=== PATIENT | female | born 1985 | race Caucasian/White ===

== ENCOUNTER → 2020-03-27 09:54 | Outpatient (BNVA) | payer OTHER, SELFPAY | PROVIDERS: Visit Provider Internal Medicine | DX: F11.99 Opioid use, unspecified with unspecified opioid-induced disorder (principal); M54.9 Dorsalgia, unspecified | CPT/HCPCS: 80305 ==

== ENCOUNTER → 2020-05-22 10:00 | Outpatient (BNVA) | payer OTHER, SELFPAY | PROVIDERS: Visit Provider Internal Medicine | DX: F11.99 Opioid use, unspecified with unspecified opioid-induced disorder (principal) ==

== ENCOUNTER → 2020-07-17 10:07 | Outpatient (BNVA) | payer OTHER, SELFPAY | PROVIDERS: Visit Provider Internal Medicine | DX: F11.99 Opioid use, unspecified with unspecified opioid-induced disorder (principal) ==

== ENCOUNTER → 2020-09-11 10:05 | Outpatient (BNVA) | payer OTHER, SELFPAY | PROVIDERS: Visit Provider Internal Medicine | DX: F11.99 Opioid use, unspecified with unspecified opioid-induced disorder (principal) ==

== ENCOUNTER → 2020-11-06 10:06 | Outpatient (BNVA) | payer OTHER, SELFPAY | PROVIDERS: Visit Provider Internal Medicine | DX: F11.99 Opioid use, unspecified with unspecified opioid-induced disorder (principal) | CPT/HCPCS: 80305 ==

== ENCOUNTER → 2021-01-01 09:54 | Outpatient (BNVA) | payer OTHER, SELFPAY | PROVIDERS: Visit Provider Internal Medicine | DX: F11.99 Opioid use, unspecified with unspecified opioid-induced disorder (principal); Z51.81 Encounter for therapeutic drug level monitoring | CPT/HCPCS: 80305 ==

== ENCOUNTER → 2021-02-24 15:30 | Outpatient (BNVA) | payer OTHER, SELFPAY | PROVIDERS: Visit Provider Internal Medicine | DX: F11.20 Opioid dependence, uncomplicated (principal); Z51.81 Encounter for therapeutic drug level monitoring; Z79.899 Other long term (current) drug therapy | CPT/HCPCS: 80305 ==

== ENCOUNTER → 2021-04-21 10:52 | Outpatient (BNVA) | payer OTHER, SELFPAY | PROVIDERS: Visit Provider Internal Medicine | DX: F11.99 Opioid use, unspecified with unspecified opioid-induced disorder (principal); I10 Essential (primary) hypertension; Z82.49 Family history of ischemic heart disease and other diseases of the circulatory system; Z88.1 Allergy status to other antibiotic agents; Z88.3 Allergy status to other anti-infective agents; Z88.2 Allergy status to sulfonamides; Z88.8 Allergy status to other drugs, medicaments and biological substances; Z51.81 Encounter for therapeutic drug level monitoring | CPT/HCPCS: 80305 ==

== ENCOUNTER 2021-06-09 14:46 | Outpatient (REF) | payer OTHER, SELFPAY ==
[2021-06-09 18:33] LABS: COVID-19 Test Negative (Negative); IDNOW Serial# 08D9AD1C
== END 2021-06-09 14:47 | disposition home or self-care (01) ==
LOC: HO.LNP 14:46
PROVIDERS: Visit Provider Internal Medicine
DX: Z20.822 Contact with and (suspected) exposure to COVID-19 (principal)
CPT/HCPCS: 87635

== ENCOUNTER → 2021-06-16 10:43 | Outpatient (BNVA) | payer OTHER, SELFPAY | PROVIDERS: Visit Provider Internal Medicine | DX: Z51.81 Encounter for therapeutic drug level monitoring (principal); F11.20 Opioid dependence, uncomplicated | CPT/HCPCS: 80305 ==

== ENCOUNTER → 2021-08-11 10:54 | Outpatient (BNVA) | payer OTHER, SELFPAY | DX: F11.90 Opioid use, unspecified, uncomplicated (principal); I10 Essential (primary) hypertension; Z51.81 Encounter for therapeutic drug level monitoring; Z88.1 Allergy status to other antibiotic agents; Z88.3 Allergy status to other anti-infective agents; Z88.2 Allergy status to sulfonamides; Z88.8 Allergy status to other drugs, medicaments and biological substances | CPT/HCPCS: 80305 ==

== ENCOUNTER → 2021-10-04 10:28 | Outpatient (BNVA) | payer OTHER, SELFPAY | PROVIDERS: Visit Provider Internal Medicine | DX: Z51.81 Encounter for therapeutic drug level monitoring (principal); F11.20 Opioid dependence, uncomplicated | CPT/HCPCS: 80305 ==

== ENCOUNTER 2021-10-21 09:59 | Emergency (ER) | payer OTHER, SELFPAY ==
--- NOTE | ~2021-10-21 | US_ITS ---
EXAMINATION: US VENOUS ULTRASOUND WITH DOPPLER LOWER EXTREMITY, RIGHT CLINICAL INFORMATION: Right calf pain, redness and swelling. COMPARISON: None TECHNIQUE: Ultrasound of the deep veins is performed from the hip to the calf with compression sonography and color and pulse Doppler assessment. Spectral analysis with color-flow imaging is performed. FINDINGS: There is normal venous compression and respiratory variation and augmented flow. The visualized common femoral vein, superficial femoral vein, profunda femoral vein, popliteal vein, and the trifurcation region shows no evidence of deep venous thrombosis. No right popliteal cyst. Superficial varices are seen in the superior calf posteriorly with intraluminal echoes and limited vascularity. No significant edema. If the patient's symptoms persist, followup ultrasound in 5 days 7 days might be of value to exclude proximal propagation from a non-visualized calf vein. US/US venous duplex LE RT IMPRESSION: 1. No DVT demonstrated in the right lower extremity. 2. Mildly dilated superficial varices in the posterosuperior calf with intraluminal echoes suggesting partially occlusive thrombus. No abnormal hypervascularity. Correlate with physical exam.
[2021-10-21 11:26] VITALS: BP 145/76; PULSE 60; RESP 16; TEMP 36.8; O2SAT 98; BMI 25.0
[2021-10-21 13:21] VITALS: BP 138/82; PULSE 63; RESP 18; TEMP 36.6; O2SAT 100
--- NOTE | 2021-10-21 13:49 | ED_ITS ---
HPI - General Adult General Chief complaint: Extremity Injury, Lower Stated complaint: calf swelling and redness Time Seen by Provider: 10/21/21 13:20 Source: patient Mode of arrival: ambulatory Limitations: no limitations History of Present Illness HPI narrative: 36-year-old female presents to ED for right calf area with swelling and redness that occurred this morning. Patient states history of varicose vein in the past. Patient denies any chest pain, shortness of breath, or any recent trauma to the area. Patient denies any coughing up blood Related Data Home Medications Medication Instructions Recorded Confirmed ibuprofen 600 mg tablet 600 mg PO TID 05/22/20 01/03/21 methocarbamol 500 mg tablet 500 mg PO BID PRN 07/17/20 01/03/21 lisinopril 5 mg tablet 10 mg PO DAILY tab 11/06/20 01/03/21 Previous Rx's Medication Instructions Recorded buprenorphine 12 mg-naloxone 3 mg 2 film SUBLINGUAL DAILY #60 ea 10/04/21 sublingual film (Suboxone) naproxen 500 mg tablet 500 mg PO BID PRN #20 tab 10/21/21 Allergies Allergy/AdvReac Type Severity Reaction Status Date / Time Clindamycin HCl Allergy Unknown diarrhea Verified 10/04/21 10:27 levofloxacin [From LEVAQUIN] Allergy Unknown MIGRAINES Verified 10/04/21 10:27 meloxicam Allergy Unknown Unknown Verified 10/04/21 10:27 Sulfa (Sulfonamide Allergy Unknown SORES, Verified 10/04/21 10:27 Antibiotics) open sores [SULFA (SULFONAMIDE on vagina ANTIBIOTICS)] clindamycin [CLINDAMYCIN] AdvReac Unknown GI UPSET Verified 10/04/21 10:27 Review of Systems Review of Systems: Right calf area of swelling and pain Yes all other systems are reviewed and are negative PMFSH Past Medical History Medical History Hypertension Opioid use disorder Surgical History History of arthroscopy of right knee History of sinus surgery History of tonsillectomy Hx of cholecystectomy Family History Family History Mother HTN (hypertension) Father HTN (hypertension) Social History Social History Advance Directives: No Advance Directives Information Provided: No Physical Exam ED Vital Signs: Vital Signs - 24 hr 10/21/21 11:26 10/21/21 13:21 Temperature 98.2 F 97.8 F Pulse Rate 60 63 Respiratory Rate 16 18 Blood Pressure 145/76 H 138/82 Pulse Oximetry 98 100 BMI result Body Mass Index 25.0 Const General: cooperative, healthy appearing, comfortable and no acute distress Orientation/consciousness: oriented to time and patient oriented x3 HENMT Head: Yes normal to inspection, Yes No palpable skull fracture present, Yes normocephalic and Yes atraumatic Eyes General: appearance normal, both eyes and all related structures Neck Neck: Yes normal visual inspection, Yes full ROM, Yes no lymphadenopathy, Yes no meningeal signs, Yes trachea midline, Yes supple, No anterior neck swelling and No tender Chest Chest palpation & inspection: normal inspection of the chest and normal palpation of entire chest wall Resp Effort & Inspection: normal respiratory effort and able to speak in complete sentences Auscultation: clear to auscultation bilaterally Cardio Jugular venous distension: no JVD Heart sounds: S1 normal heart sound present and S2 normal heart sound present GI Inspection: Yes normal to inspection and No abdominal wall ecchymosis Palpation (GI): Soft to palpation, not firm, nontender, no guarding and not rigid General: No CVA tenderness and Yes no CVA tenderness Back/Spine/Pelvis Back: no CVA tenderness, No CVA tenderness and No back tenderness Skin General skin exam: no rashes or lesions noted and elasticity normal Neuro General: oriented to time, patient oriented x3, gait normal and no meningeal signs Cranial nerves: Yes CN's II-XII intact bilaterally Extrem General: Yes normal to inspection and Yes full ROM Knee images: 1. Area of redness with tenderness on palpation. Negative for any fluctuance, pus discharge or foul odor. Lower extremity motor/nose/vascular exam intact Psych Appearance: grossly normal, well kempt and not disheveled Course Course Course Narrative: Ultrasound ordered. Reevaluation(s) Reevaluation #1: Ultrasound shows partial occlusive thrombus and superficial right posterior superior varices calf. Contact Vascular Surgeon Time: 14:00 Reevaluation #2: Spoke with Dr. Gibson of vascular surgery recommended only NSAIDs and warm compr esses for superficial thrombosis. Patient given copy of ultrasound results told to follow-up with primary care provider Time: 14:14 Medical Decision Making MDM Narrative Medical decision making narrative: Superficial varicose vein thrombus Discharge Plan Discharge Clinical Impression: Varicose vein of leg, Superficial thrombosis of leg Patient Disposition: Home, Self-Care Instructions: Superficial Thrombophlebitis (ED) Additional Instructions: Ultrasound showed thrombus any varicose veins. Vascular surgeon recommend NSAIDs and warm compress on the area. Please follow-up with your primary care provider. Return to the ED immediately for any chest pain, shortness of breath, weakness, dizziness, coughing up blood, increased swelling, increased pain, or any other concerning symptoms. Prescriptions: New naproxen 500 mg tablet 500 mg PO BID PRN (Reason: pain) Qty: 20 0RF No Action lisinopril 5 mg tablet 10 mg PO DAILY 0RF ibuprofen 600 mg tablet 600 mg PO TID 0RF methocarbamol 500 mg tablet 500 mg PO BID [id number] Label Comments: as needed per patient -betito be buprenorphine-naloxone [Suboxone] 12-3 mg film 2 film sublingual DAILY Qty: 60 1RF Rx Instructions: place 1 strip/tab under (each) side of tongue pls fill today or tomorrow Stand Alone Forms: Work/School Release Interventions: ED Discharge Assessment Last Done: 10/21/21 14:25 Discharge Date/Time: 10/21/21 14:26 Print Language: Burundian
== END 2021-10-21 14:26 | disposition home or self-care (01) ==
PROVIDERS: Emergency Provider Emergency Medicine
DX: I82.811 Embolism and thrombosis of superficial veins of right lower extremity (principal); I83.91 Asymptomatic varicose veins of right lower extremity; I10 Essential (primary) hypertension
CPT/HCPCS: 93971; 99281; 99284

== ENCOUNTER → 2021-11-29 10:03 | Outpatient (BNVA) | payer OTHER, SELFPAY | PROVIDERS: Visit Provider Internal Medicine | DX: Z51.81 Encounter for therapeutic drug level monitoring (principal); F11.20 Opioid dependence, uncomplicated | CPT/HCPCS: 80305 ==

== ENCOUNTER → 2022-07-08 09:07 | Outpatient (BNVA) | payer OTHER, SELFPAY | PROVIDERS: Visit Provider Nurse Practitioner Psychiatric/Mental Health | DX: Z51.81 Encounter for therapeutic drug level monitoring (principal); Z79.899 Other long term (current) drug therapy | CPT/HCPCS: 80305 ==

== ENCOUNTER → 2022-09-02 13:03 | Outpatient (BNVA) | payer OTHER, SELFPAY | DX: Z13.89 Encounter for screening for other disorder (principal) ==

== ENCOUNTER → 2022-10-28 09:09 | Outpatient (BNVA) | payer OTHER, SELFPAY | PROVIDERS: PCP Family Medicine; Visit Provider Nurse Practitioner Psychiatric/Mental Health ==

== ENCOUNTER 2023-01-18 11:30 | Outpatient (REF) | payer OTHER, SELFPAY ==
[2023-01-18 12:32] LABS: Alanine Aminotransferase 9 U/L (0-31); Albumin Level 4.5 g/dL (3.5-5.0); Alkaline Phosphatase 55 U/L (39-117); Aspartate Amino Transferase 15 U/L (5-31); Bilirubin Direct 0.3 mg/dL (0.0-0.5); Bilirubin Total 0.6 mg/dL (0.0-1.0); Total Protein 7.2 g/dL (6.5-8.0)
== END 2023-01-18 11:31 | disposition home or self-care (01) ==
LOC: HO.LAB 11:30
PROVIDERS: PCP Family Medicine; Visit Provider Nurse Practitioner Psychiatric/Mental Health
DX: Z79.899 Other long term (current) drug therapy (principal)
CPT/HCPCS: 36415; 80076

== ENCOUNTER 2023-01-20 09:05 | Outpatient (AMB) | payer OTHER, SELFPAY ==
--- NOTE | 2023-01-20 09:06 | A.OFFVIS_ITS ---
Intake Vital Signs 01/20/23 09:11 BP 126/84 Blood Pressure Location Lt radial Position Sitting Pulse 84 Pulse Source Pulse Oximeter Pulse Oximetry (%) 98 Oxygen Delivery Method Room Air Intake Visit Reasons: MAT Visit Intake Note: the patient presents for a mat visit Primary Montessori Teacher Required: No Allergies Clindamycin HCl Allergy (Unknown, Verified 01/20/23 09:07) diarrhea levofloxacin [From LEVAQUIN] Allergy (Unknown, Verified 01/20/23 09:07) MIGRAINES meloxicam Allergy (Unknown, Verified 01/20/23 09:07) Unknown Sulfa (Sulfonamide Antibiotics) [SULFA (SULFONAMIDE ANTIBIOTICS)] Allergy (Unknown, Verified 01/20/23 09:07) SORES, open sores on vagina clindamycin [CLINDAMYCIN] Adverse Reaction (Unknown, Verified 01/20/23 09:07) GI UPSET Medication List - Last Reconciled 01/20/23 by Nury Olivo, ALEAJNDRINA buprenorphine-naloxone 12-3 mg (Suboxone) 1 film sublingual BID cholecalciferol (vitamin D3) 50 mcg PO DAILY docusate sodium (Colace) 100 mg PO DAILY PRN lisinopril 10 mg PO DAILY methocarbamol 500 mg PO BID PRN omeprazole 20 mg PO DAILY sennosides (senna) 8.6 mg PO BEDTIME PRN Do you need a note to return to daycare/school/sports/work: No HPI MAT Visit HPI Details Pt presents for follow up Currently being prescribed Suboxone 12mg BID Denies any side effects related to medication Completed lab work, reviewed--WNL No questions or concerns at this time PFSH Medical History Hypertension Opioid use disorder Surgical History History of arthroscopy of right knee History of sinus surgery History of tonsillectomy Hx of cholecystectomy Family History Mother HTN (hypertension) Father HTN (hypertension) Review of Systems Const Reports as per HPI and Reports no additional complaints Physical Exam Vital Signs: Last Vital Signs Pulse 84 01/20/23 09:11 BP 126/84 01/20/23 09:11 Pulse Ox 98 01/20/23 09:11 Oxygen Delivery Method Room Air 01/20/23 09:11 Const General: cooperative and healthy appearing Psych Appearance: well kempt Speech and movement: Clear speech present Insight: Good insight present (Psych) Judgement: Good judgement present (Psych) Assessment & Plan Assessment & Plan (1) Opioid use disorder, moderate, in sustained remission, dependence: Code(s): F11.21 - Opioid dependence, in remission Plan: * continue suboxone at current dose * follow up 4 months Medications: Refilled buprenorphine-naloxone 12-3 mg (Suboxone) 1 film sublingual BID 60 ea 3RF Coding Level of Care Code Est Pt Level 3 (64689) Diagnoses Opioid use disorder, moderate, in sustained remission, dependence F11.21
[2023-01-20 09:11] VITALS: BP 126/84; PULSE 84; O2SAT 98
== END 2023-01-20 09:40 | disposition home or self-care (01) ==
LOC: HO.HCC 09:05
PROVIDERS: PCP Family Medicine; Visit Provider Nurse Practitioner Psychiatric/Mental Health
DX: F11.21 Opioid dependence, in remission (principal)
CPT/HCPCS: 99213

== ENCOUNTER → 2023-01-20 09:05 | Outpatient (BNVA) | payer OTHER, SELFPAY | PROVIDERS: PCP Family Medicine; Visit Provider Nurse Practitioner Psychiatric/Mental Health | DX: Z79.899 Other long term (current) drug therapy (principal) ==

== ENCOUNTER 2023-05-12 09:14 | Outpatient (AMB) | payer OTHER, SELFPAY ==
--- NOTE | 2023-05-12 09:15 | A.OFFVIS_ITS ---
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 Allergies Clindamycin HCl Allergy (Unknown, Verified 05/12/23 09:21) diarrhea levofloxacin [From LEVAQUIN] Allergy (Unknown, Verified 05/12/23 09:21) MIGRAINES meloxicam Allergy (Unknown, Verified 05/12/23 09:21) Unknown Sulfa (Sulfonamide Antibiotics) [SULFA (SULFONAMIDE ANTIBIOTICS)] Allergy (Unknown, Verified 05/12/23 09:21) SORES, open sores on vagina clindamycin [CLINDAMYCIN] Adverse Reaction (Unknown, Verified 05/12/23 09:21) GI UPSET Do you need a note to return to daycare/school/sports/work: No HPI MAT Visit HPI Details Patient presents for follow up Currently prescribed Suboxone 12mg BID Physical scheduled for July Doing well overall [facility] Medical History Hypertension Opioid use disorder Surgical History History of arthroscopy of right knee History of sinus surgery History of tonsillectomy Hx of cholecystectomy Family History Mother HTN (hypertension) Father HTN (hypertension) Review of Systems Const Reports as per HPI and Reports no additional complaints Physical Exam Vital Signs: Last Vital Signs Pulse 86 05/12/23 09:20 BP 110/72 05/12/23 09:20 Pulse Ox 97 05/12/23 09:20 Oxygen Delivery Method Room Air 05/12/23 09:20 Const General: cooperative and healthy appearing Psych Appearance: well kempt Speech and movement: Clear speech present Insight: Good insight present (Psych) Judgement: Good judgement present (Psych) Assessment & Plan Assessment & Plan (1) Opioid use disorder, moderate, in sustained remission, dependence: Code(s): F11.21 - Opioid dependence, in remission Plan: * continue suboxone at current dose * follow up 4 months Medications: Refilled buprenorphine-naloxone 12-3 mg (Suboxone) 1 film sublingual BID 60 ea 3RF Coding Level of Care Code Est Pt Level 3 (44060) Diagnoses Opioid use disorder, moderate, in sustained remission, dependence F11.21
[2023-05-12 09:20] VITALS: BP 110/72; PULSE 86; O2SAT 97
== END 2023-05-12 11:41 | disposition home or self-care (01) ==
PROVIDERS: PCP Family Medicine; Visit Provider Nurse Practitioner Psychiatric/Mental Health
DX: F11.21 Opioid dependence, in remission (principal)
CPT/HCPCS: 99213

== ENCOUNTER → 2023-05-12 09:14 | Outpatient (BNVA) | payer OTHER, SELFPAY | PROVIDERS: PCP Family Medicine | DX: Z79.899 Other long term (current) drug therapy (principal) ==

== ENCOUNTER 2023-08-29 08:59 | Outpatient (AMB) | payer OTHER, SELFPAY ==
[2023-08-29 09:07] VITALS: BP 100/60; RESP 19; TEMP 36.6; O2SAT 98
--- NOTE | 2023-08-29 09:07 | A.OFFVISCC_ITS ---
Intake Vital Signs 08/29/23 09:07 BP 100/60 Blood Pressure Location Rt radial Position Sitting Respiration 19 Pulse Source Pulse Oximeter Temp 98 F Pulse Oximetry (%) 98 Intake Visit Reasons: MAT Visit Allergies Clindamycin HCl Allergy (Unknown, Verified 05/12/23 09:21) diarrhea levofloxacin [From LEVAQUIN] Allergy (Unknown, Verified 05/12/23 09:21) MIGRAINES meloxicam Allergy (Unknown, Verified 05/12/23 09:21) Unknown Sulfa (Sulfonamide Antibiotics) [SULFA (SULFONAMIDE ANTIBIOTICS)] Allergy (Unknown, Verified 05/12/23 09:21) SORES, open sores on vagina clindamycin [CLINDAMYCIN] Adverse Reaction (Unknown, Verified 05/12/23 09:21) GI UPSET HPI MAT Visit HPI Details Patient presents for follow up Stable on current dose Denies any side effects from medication Work is stable no questions or concerns at this time [facility] Medical History (Updated 08/29/23 @ 11:25 by Nury Olivo CNP) Hypertension Opioid use disorder Surgical History Hx of cholecystectomy History of arthroscopy of right knee History of sinus surgery History of tonsillectomy Family History Mother HTN (hypertension) Father HTN (hypertension) Review of Systems Const Reports as per HPI and Reports no additional complaints Physical Exam Vital Signs: Last Vital Signs Temp 98 F 08/29/23 09:07 Resp 19 08/29/23 09:07 BP 100/60 08/29/23 09:07 Pulse Ox 98 08/29/23 09:07 Const General: cooperative, healthy appearing and well groomed Psych Speech and movement: Normal speech and movement present Affect: normal affect Attitude: cooperative Thought process: Normal thought process present Insight: Good insight present (Psych) Judgement: Good judgement present (Psych) Assessment & Plan Assessment & Plan (1) Opioid use disorder, moderate, in sustained remission, dependence: Code(s): F11.21 - Opioid dependence, in remission Plan: * continue suboxone at current dose * encouraged to call office with any issues * follow up 5 months --patient to call and schedule appt Medications: Refilled buprenorphine-naloxone 12-3 mg (Suboxone) 1 film sublingual BID 60 ea 4RF Coding Level of Care Code Est Pt Level 3 (74409) Diagnoses Opioid use disorder, moderate, in sustained remission, dependence F11.21
== END 2023-08-29 09:30 | disposition home or self-care (01) ==
PROVIDERS: PCP Family Medicine; Visit Provider Nurse Practitioner Psychiatric/Mental Health
DX: F11.21 Opioid dependence, in remission (principal)
CPT/HCPCS: 99213

== ENCOUNTER → 2023-08-29 08:59 | Outpatient (BNVA) | payer OTHER, SELFPAY | PROVIDERS: PCP Family Medicine; Visit Provider Nurse Practitioner Psychiatric/Mental Health | DX: Z79.899 Other long term (current) drug therapy (principal) ==

== ENCOUNTER → 2024-01-17 14:39 | Outpatient (BNVA) | payer BC, SELFPAY | PROVIDERS: PCP Family Medicine; Visit Provider Nurse Practitioner Psychiatric/Mental Health ==

== ENCOUNTER 2024-07-05 10:47 | Outpatient (AMB) | payer BC, SELFPAY ==
[2024-07-05 10:58] VITALS: BP 140/90; PULSE 71; O2SAT 98
--- NOTE | 2024-07-05 10:58 | A.OFFVISCC_ITS ---
Vital Signs 07/05/24 10:58 BP 140/90 H Blood Pressure Location Rt brachial Position Sitting Pulse 71 Pulse Oximetry (%) 98 Intake Visit Reasons: MAT Office Allergies Clindamycin HCl Allergy (Unknown, Verified 05/12/23 09:21) diarrhea levofloxacin [From LEVAQUIN] Allergy (Unknown, Verified 05/12/23 09:21) MIGRAINES meloxicam Allergy (Unknown, Verified 05/12/23 09:21) Unknown Sulfa (Sulfonamide Antibiotics) [SULFA (SULFONAMIDE ANTIBIOTICS)] Allergy (Unknown, Verified 05/12/23 09:21) SORES, open sores on vagina clindamycin [CLINDAMYCIN] Adverse Reaction (Unknown, Verified 05/12/23 09:21) GI UPSET HPI HPI MAT Office: Details: Patient presents for follow up Currently prescribed 12mg BID No issues related to medication labs due -- Review of Systems Const Reports as per HPI and Reports no additional complaints Physical Exam Vital Signs: Last Vital Signs Pulse 71 07/05/24 10:58 BP 140/90 H 07/05/24 10:58 Pulse Ox 98 07/05/24 10:58 Const General: cooperative, healthy appearing and well groomed Psych Speech and movement: Normal speech and movement present Affect: normal affect Attitude: cooperative Thought process: Normal thought process present Insight: Good insight present (Psych) Judgement: Good judgement present (Psych) [facility] Medical History (Updated 08/29/23 @ 11:25 by Nury Olivo CNP) Hypertension Opioid use disorder Surgical History Hx of cholecystectomy History of arthroscopy of right knee History of sinus surgery History of tonsillectomy Family History Mother HTN (hypertension) Father HTN (hypertension) Assessment & Plan Assessment & Plan (1) Opioid use disorder, moderate, in sustained remission, dependence: Code(s): F11.21 - Opioid dependence, in remission Category: Medical Plan: * continue suboxone at current dose * encouraged to call office with any issues * follow up 5 months --patient to call and schedule appt Orders: Orders Liver Panel 07/05/24 Z79.899 - Other lobsterman (current) drug therapy
== END 2024-07-05 11:11 | disposition home or self-care (01) ==
PROVIDERS: PCP Family Medicine; Visit Provider Nurse Practitioner Psychiatric/Mental Health
DX: F11.21 Opioid dependence, in remission (principal)
CPT/HCPCS: 99213

== ENCOUNTER 2024-12-27 09:37 | Outpatient (AMB) | payer BC, SELFPAY ==
--- OUTSIDE RECORDS SUMMARY | 2024-12-27 09:43 | XMS_ITS | Clinical Summary ---
Author Organization [facility] [address] [facility] l[address] Address [address] [place] [address] Phone Care Team Providers Care Blood Bank Worker Name Role Phone Yady Salter MD Primary Care Provider Allergies Active Allergy Reactions Criticality Noted Date Comments Clindamycin Diarrhea Medium 04/23/2014 Levofloxacin Headache High 11/04/2016 Meloxicam GI intolerance 07/23/2021 Sulfa (Sulfonamide Antibiotics) Rash 04/23/2014 Pt gets vaginal area open sores Medications multivitamin (DAILY VITAMIN ORAL) Vitamin D Take 1 tablet by mouth daily. Active omeprazole 20 mg tablet,disinteg rat, delay rel Take 1 tablet by mouth every other day. Active buprenorphine-n aloxone (SUBOXONE) 12-3 mg film Active acetaminophen (TYLENOL) 500 mg capsule Take 1,000 mg by mouth 2 times daily as needed. Active levonorgestreL (MIRENA) 21 mcg/24hr (up to 8 yrs) 52 mg IUD 1 Each by Intrauterine route once. 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 Opiate addiction (CMS/[facility] V24, CMS/[facility] V28) 05/06/2019 Overview (07/03/2024): On suboxone 2020 Stress fracture 08/21/2016 Overview (07/03/2024): 2nd metatarsal- rt Bunion 02/03/2016 Chronic cholecystitis 08/05/2015 Essential hypertension 01/23/2015 Immunizations Name Administration Dates Next Due Influenza Quadravalent, MDCK , 0.5ml, preservative free (Flucelvax) 6mo and older 07/18/2023,02/18/2022 Influenza Quadrivalent, 0.5m l, preservative free (Fluarix; FluLaval; Fluzone) ages 6mo and older (Afluria) 3yo and older 04/30/2018 Influenza trivalent, 0.5mL, preservative free (Fluarix; FluLaval; Fluzone) ages 6mo and older (Afluria) 3 years and older 02/10/2016 Influenza trivalent, MDCK, 0 .5mL, preservative free (Flucelvax) 6mo and older 05/02/2024 Influenza trivalent, with pr eservative (Fluzone; Afluria) 6mo and older 04/30/2018,02/19/2015 Arachno SARS-CoV-2 COVID-19, mRNA, LNP-S, preservative free 06/07/2021,10/22/2020 Surgical History Surgery Date Site/Laterality Comments SINUS SURGERY PROCEDURE: RI UNLISTED PROCEDURE ACCESSORY SINUSES; COMMENT: x 3 KNEE ARTHROSCOPY PROCEDURE: RI ARTHROSCOPY AID TX SPINE&/FX KNEE W/O FIXJ; COMMENT: R knee; patellar luxation (Dr. Lock) BUNIONECTOMY 2017 Right PROCEDURE: BUNION SURGERY, SIMPLE REMOVAL CHOLECYSTECTOMY PROCEDURE: HISTORICAL CHOLECYSTECTOMY Medical History Medical History Date Comments Chronic back pain DX:Chronic severiano k pain; COMMENT: scoiliosis and arthritis Patellar luxation DX:Patellar aspen xation; COMMENT: bilateral Chronic sinusitis DX:Chronic sin usitis H/O gestational diabetes rosie litus, not currently DX:H/O gestational diabetes mellitus, not currently Essential hypertension 01/23/2015 DX:Essent ial hypertension Bunion 02/03/2016 DX:Bunion Opiate addiction ([facility]/HCC V2 4, [facility]/HCC V28) 10/31/2019 DX:Opiate addiction (HCC); C OMMENT: On suboxone 2020 Covid-19 07/04/2023 DX:COVID-19 Family History Medical History Relation Name Comments Alcohol/Drug Father Heart attack Father Stroke Father Diabetes Maternal Grandmother Heart attack Maternal Grandmother Diabetes Mother Hypertension Mother Other: osteoarthitis Mother Diabetes Mother's side 1 Other: heart disease Paternal Grandfather Breast cancer Neg Hx Colon cancer Neg Hx Ovarian cancer Neg Hx Relation Name Status Comments Brother Alive healthy Father sinus issues Maternal Grandfather Maternal Grandmother Mother Alive Mother's side 1 Mother's side 2 Paternal Grandfather Paternal Grandmother Alive Social History Tobacco Use Types Packs/Day Years Used Date Smoking Tobacco: Former Cigarettes Q uit: 09/10/2022 Smokeless Tobacco: Never Tobacco Cessation:Counseling Given: Not Answered Alcohol Use Standard Drinks/Week Comments Not Currently 0 (1 standard drink = 0.6 oz pur e alcohol) Comments No Sex and Gender Information Value Date Recorded Sex Assigned at Not on file Legal Sex Female 11:33 PM EST Gender Identity Not on file Sexual Orientation Not on file Obstetrics History Last Filed Vital Signs Vital Sign Reading Time Taken Comments Blood Pressure 128/90 08/15/2024 3:52 PM EST Pulse 95 08/15/2024 3:52 PM EST Temperature 36.7 C (98 F) 08/15/2024 3:52 PM EST Respiratory Rate 16 08/15/2024 3:52 PM EST Oxygen Saturation - - Inhaled Oxygen Concentration - - Weight 82.7 kg (182 lb 6.4 oz) 08/15/2024 3:52 P M EST Height 167.6 cm (5' 6 ) 07/18/2023 3:35 PM EST Body Mass Index 29.44 07/18/2023 3:35 PM EST Plan of Treatment Health Maintenance Due Date Last Done Comments DTaP,Tdap,and Td Vaccines (1 - Tdap) 2004 Hepatitis A Vaccines (1 of 2 - Risk 2-dose series) 2004 Hepatitis B Vaccines (1 of 3 - 19+ 3-dose series) 2004 HIV Screening 05/15/2022 Hepatitis C Screening 05/15/2022 Social Influencers of Health Screening 05/15/2022 Hypertension/CHF/CAD Annual BMP Blood Test 04/27/2023 04/27/2022 Influenza Vaccine (#1) 2025 , 07/18/2023, 02/18/2022, Additional history exists Depression Screening 08/15/2025 08/15/2024 COVID-19 Vaccine ( season) 2025 05/19/2022, 06/07/2021, 10/22/2020, Additional history exists Postponed from 02/11/2024 (Patient Refused) Cervical Cancer Screening: HPV 11/04/2025 11/04/2020 Cholesterol Screening (Lipid Panel) 04/27/2027 04/27/2022 HIB Vaccines Aged Out No longer eligi ble based on patient's age to complete this topic HPV Vaccines Aged Out No longer eligi ble based on patient's age to complete this topic IPV Vaccines Aged Out No longer eligi ble based on patient's age to complete this topic MMR Vaccines Aged Out No longer eligi ble based on patient's age to complete this topic Meningococcal ACWY Vaccine Aged Out N o longer eligible based on patient's age to complete this topic Meningococcal B Vaccine Aged Out No l onger eligible based on patient's age to complete this topic Pneumococcal Vaccine: Pediatrics (0 to 5 Years) and At-Risk Patients (6 to 49 Years) Aged Out No longer eligible based on patient's age to complete this topic RSV Immunization Patients Under 20 months Aged Out No longer eligible based on patient's age to complete this topic Varicella Vaccines Aged Out No longer eligible based on patient's age to complete this topic Procedures Procedure Name Priority Date/Time Associated Diagnosis Comments ANNUAL BMP BLOOD TEST Routine 04/27/2022 LIPID PANEL Routine 04/27/2022 HPV Routine 11/04/2020 from Last 3 Months or Most Recently Relevant to Health Maintenance Results * Annual BMP Blood Test (04/27/2022) Pathologist [facility] Annual BMP Blood Test abstracted us Historical Provider MD HEALTH MAINTENANCE Final Result * Lipid panel (04/27/2022) LDL/HDL Ratio 3 0 - 4 Triglycerides 91 0 - 150 mg/dL Cholesterol 167 0 - 200 mg/dL HDL 60 >=40 mg/dL LDL Cholesterol 89 0 - 100 mg/dL Blood Venous blood specimen / Unknown Historical Provider LAB BLOOD ORDERABLES Frieda l Result * Cervical Cancer Screening: HPV (11/04/2020) Cervical Cancer Screening: HPV abstracted, negative Historical Provider HEALTH MAINTENANCE Final Result from Last 3 Months or Most Recently Relevant to Health Maintenance Insurance [facility] Care Teams Blood Bank Worker Relationship Specialty Start Date End Date Yady Salter MD [address] [place] [id number] PCP - General Internal Medicine 07/06/21
[2024-12-27 09:45] VITALS: BP 140/76; PULSE 106; O2SAT 96
--- NOTE | 2024-12-27 09:45 | A.OFFVIS_ITS ---
Vital Signs 12/27/24 09:45 Height 5 ft 6 in BP 140/76 H Pulse 106 H Pulse Oximetry (%) 96 Intake Visit Reasons: MAT Allergies Clindamycin HCl Allergy (Unknown, Verified 12/27/24 09:47) diarrhea levofloxacin (From LEVAQUIN) Allergy (Unknown, Verified 12/27/24 09:47) MIGRAINES meloxicam Allergy (Unknown, Verified 12/27/24 09:47) Unknown Sulfa (Sulfonamide Antibiotics) (SULFA (SULFONAMIDE ANTIBIOTICS)) Allergy (Unknown, Verified 12/27/24 09:47) SORES, open sores on vagina clindamycin (CLINDAMYCIN) Adverse Reaction (Unknown, Verified 12/27/24 09:47) GI UPSET HPI HPI MAT: Details: She is here with her daughter today. She is doing well. She has rare constipation. Her daughter is doing cheerleading. [facility] Medical History Hypertension Opioid use disorder Surgical History Hx of cholecystectomy History of arthroscopy of right knee History of sinus surgery History of tonsillectomy Family History Mother HTN (hypertension) Father HTN (hypertension) Physical Exam Vital Signs: Last Vital Signs Pulse 106 H 12/27/24 09:45 BP 140/76 H 12/27/24 09:45 Pulse Ox 96 12/27/24 09:45 Assessment & Plan Assessment & Plan (1) Opioid use disorder, moderate, in sustained remission, dependence: Comment: She is doing well. Code(s): F11.21 - Opioid dependence, in remission Category: Medical Plan: Continue current medication. See in two months. Medications: New buprenorphine-naloxone 12-3 mg (Suboxone) 1 film sublingual BID 120 ea 1RF 60 days Coding Level of Care Code Est Pt Level 3 (68403) Diagnoses Opioid use disorder, moderate, in sustained remission, dependence F11.21
== END 2024-12-27 10:13 | disposition home or self-care (01) ==
LOC: HO.HCC 09:38
PROVIDERS: PCP Family Medicine; Visit Provider Internal Medicine
DX: F11.21 Opioid dependence, in remission (principal)
CPT/HCPCS: 99213

== ENCOUNTER 2025-04-25 09:40 | Outpatient (AMB) | payer BC, SELFPAY ==
[2025-04-25 09:48] VITALS: BP 150/96; PULSE 90; O2SAT 100; BMI 30.2
--- NOTE | 2025-04-25 09:48 | MHC.OFFVIS ---
Vital Signs 04/25/25 09:48 Height 5 ft 6 in Weight 187 lb BMI 30.2 BP 150/96 H Blood Pressure Location Lt brachial Position Sitting Pulse 90 Pulse Source Pulse Oximeter Pulse Oximetry (%) 100 Oxygen Delivery Method Room Air Intake Visit Reasons: MAT Allergies Clindamycin HCl Allergy (Unknown, Verified 04/25/25 09:49) diarrhea levofloxacin (From LEVAQUIN) Allergy (Unknown, Verified 04/25/25 09:49) MIGRAINES meloxicam Allergy (Unknown, Verified 04/25/25 09:49) Unknown Sulfa (Sulfonamide Antibiotics) (SULFA (SULFONAMIDE ANTIBIOTICS)) Allergy (Unknown, Verified 04/25/25 09:49) SORES, open sores on vagina clindamycin (CLINDAMYCIN) Adverse Reaction (Unknown, Verified 04/25/25 09:49) GI UPSET HPI Comments Details: History of Present Illness The patient is a 39-year-old female presenting for a medication refill and follow-up for Suboxone therapy related to her Opioid Use Disorder. She is currently maintained on Suboxone 12/3 mg twice daily, reporting effective control of her opioid cravings and back pain relief. The patient denies experiencing any constipation or anxiety secondary to the medication, and she is not interested in tapering off the treatment at this time. She remains stable and adherent to her medication regimen, acknowledging her understanding of potential long-term side effects such as decreased bone density and drug interactions. Review of Systems - Psychiatric: Denies anxiety. - Gastrointestinal: Denies constipation. Physical Exam - Vitals- Stable. Results Plan Patient was informed and verbally consented to the use of an ambient scribe for clinic note documentation during this visit. 1. Opioid use, unspecified, uncomplicated F11.90 The patient continues Suboxone 12/3 mg twice daily for opioid management and pain relief, with a two-month prescription provided. She is informed of long-term opioid side effects like bone density reduction. Reassessment is scheduled in four months to ensure medication efficacy and address any new developments. Discussion Notes I engaged in a detailed discussion with the patient regarding her ongoing management plan for Opioid Use Disorder with Suboxone. I reviewed potential chronic side effects associated with opioid therapy such as possible bone density reduction and interactions with other medications. The patient voiced understanding and consented to continue with her current regimen without modifications. She reports satisfaction with the current management, noting no current adverse effects. We discussed a follow-up in four months to reevaluate her condition and response to treatment. I ensured she understands the importance of adhering to her regimen for sustained therapeutic benefits. Medical Decision Making In managing this case of Opioid Use Disorder, the decision was made to maintain the patient on her existing Suboxone regimen of 12/3 mg twice daily due to its effectiveness in controlling her condition and providing additional pain relief. Her stable vital signs and absence of adverse side effects underscore the appropriateness of continuing this treatment without tapering. Significant time was spent discussing potential long-term implications, and through comprehension confirmation, the patient agreed to proceed with this management strategy. The overarching goal remains sustained abstinence from opioids and monitoring for any development of side effects during subsequent evaluations. Patient Instructions - Continue taking Suboxone 12/3 mg twice daily as prescribed. - Return for follow-up in four months for reassessment. - Seek medical advice if experiencing new symptoms or side effects. - Maintain awareness of potential long-term side effects discussed during the visit. [facility] Medical History Hypertension Opioid use disorder Surgical History Hx of cholecystectomy History of arthroscopy of right knee History of sinus surgery History of tonsillectomy Family History Mother HTN (hypertension) Father HTN (hypertension) Physical Exam Vital Signs: Last Vital Signs Pulse 90 04/25/25 09:48 BP 150/96 H 04/25/25 09:48 Pulse Ox 100 04/25/25 09:48 Oxygen Delivery Method Room Air 04/25/25 09:48 BMI result Body Mass Index 30.2 Assessment & Plan Assessment & Plan (1) Opioid use disorder, moderate, in sustained remission, dependence: Comment: She is doing well. Code(s): F11.21 - Opioid dependence, in remission Category: Medical Plan as above Medications: New buprenorphine-naloxone 12-3 mg (Suboxone) 1 film sublingual BID 120 ea 1RF 60 days Coding Level of Care Code Est Pt Level 3 (85451) Diagnoses Opioid use disorder, moderate, in sustained remission, dependence F11.21
--- OUTSIDE RECORDS SUMMARY | 2025-04-25 10:45 | XMS_ITS | Clinical Summary ---
Author Organization [facility] [address] [facility] l[address] Address [address] [place] [address] Phone Care Team Providers Care Anchorer Name Role Phone Yady Salter MD Primary [...] luxation 07/03/2024 Overview (07/03/2024): bilateral Opiate addiction (CMS/[facility] V24, CMS/[facility] V28) 05/06/2019 Overview (07/03/2024): On suboxone 2020 Stress fracture 08/21/2016 Overview (07/03/2024): 2nd metatarsal- rt Bunion 02/03/2016 Chronic cholecystitis 08/05/2015 Essential hypertension 01/23/2015 Immunizations Immunization Administration Dates Next Due Influenza Quadravalent, MDCK [...] eservative (Fluzone; Afluria) 6mo and older 04/30/2018,02/19/2015 InviteDEV SARS-CoV-2 COVID-19, mRNA, LNP-S, preservative free 06/07/2021,10/22/2020 Surgical History Surgery Date Site/Laterality Comments SINUS SURGERY PROCEDURE: [place] UNLISTED PROCEDURE ACCESSORY SINUSES; COMMENT: x 3 KNEE ARTHROSCOPY PROCEDURE: [place] ARTHROSCOPY AID [place] SPINE&/FX KNEE W/O FIXJ; [...] ial hypertension Bunion 02/03/2016 DX:Bunion Opiate addiction ([facility]/HCC V2 4, [facility]/HCC V28) 10/31/2019 DX:Opiate addiction (HCC); C OMMENT: On suboxone 2019 Covid-19 07/04/2023 DX:COVID-19 Family History Medical History [...] Years Used Date Smoking Tobacco: Former Cigarettes 0.5 Q uit: 09/10/2022 Smokeless Tobacco: Never Tobacco [...] of 3 - 19+ 3-dose series) 2004 HPV Vaccines (1 - 3-dose SCDM series) 2012 HIV Screening 05/15/2022 Hepatitis C Screening 05/15/2022 Social Influencers of Health Screening 05/15/2022 Hypertension/CHF/CAD Annual BMP Blood Test 04/27/2023 04/27/2022 Depression Screening 06/12/2024 COVID-19 Vaccine ( season) 2025 05/19/2022, 06/07/2021, 10/22/2020, Additional history exists Influenza Vaccine (#1) 2025 , 07/18/2023, 02/18/2022, Additional history exists Cervical Cancer Screening: HPV 11/04/2025 11/04/2020 Cholesterol Screening (Lipid Panel) 04/27/2027 04/27/2022 RSV Immunization Adult Patients (1 - 1-dose 75+ series) 2060 HIB Vaccines Aged Out No longer eligi [...] * Annual BMP Blood Test (04/27/2022) Pathologist [facility] Annual BMP Blood Test abstracted us Historical Provider MD HEALTH MAINTENANCE Final Result * Lipid panel (04/27/2022) Pathologist [facility] LDL/HDL Ratio 3 0 - 4 Triglycerides 91 0 - 150 mg/dL Cholesterol 167 0 - 200 mg/dL HDL 60 >=40 mg/dL LDL Cholesterol 89 0 - 100 mg/dL Blood Venous blood specimen / Unknown Historical Provider LAB BLOOD ORDERABLES Frieda l Result * Cervical Cancer Screening: HPV (11/04/2020) Pathologist [facility] Cervical Cancer Screening: HPV abstracted, negative Historical Provider HEALTH MAINTENANCE Final Result from Last 3 Months or Most Recently Relevant to Health Maintenance Insurance [facility] Care Teams Anchorer Relationship Specialty Start Date End Date Yady Salter MD [address] [place] [id number] PCP - General Internal Medicine 07/06/21
== END 2025-04-25 10:14 | disposition home or self-care (01) ==
LOC: HO.HCC 09:40
PROVIDERS: PCP Family Medicine; Visit Provider Internal Medicine
DX: F11.21 Opioid dependence, in remission (principal)
CPT/HCPCS: 99213